=== PATIENT | female | born 1990 | race Caucasian/White ===

== ENCOUNTER 2022-04-10 11:01 | Inpatient (IN) | payer BC ==
[~2022-04-10 11:01] MED LIST: Bupivacaine 0.25% HCL 30 ML VIAL ONE; Bupivacaine HCl 0.5%/Epinephrine 1:200,000/PF 30 ml Vial ONE; Bupivacaine/Epinephrine 0.25% 30 ML VIAL ONE; Lidocaine 2% MPF 10 ML AMP (For Epidural Use) ONE
[2022-04-10] MEDS ORDERED: Diphenoxylate HCl/Atropine Tablet PO PRN ×2 (11:49)
[2022-04-10] MEDS ORDERED: Butorphanol Tartrate 1 MG/ML VIAL SLOW IVP PRN (11:49)
[2022-04-10] MEDS ORDERED: Ibuprofen 800 MG TAB PO PRN (11:49)
[2022-04-10] MEDS ORDERED: HYDROcodone/Acetaminophen 5/325 mg Tablet PO PRN ×2 (11:49)
[2022-04-10] MEDS ORDERED: Lidocaine 1% (PF) 30 ML VIAL SC PRN (11:49)
[2022-04-10] MEDS ORDERED: Acetaminophen 500 MG TAB PO PRN (11:49)
[2022-04-10] MEDS ORDERED: hydrALAZINE 20 MG/ML VIAL SLOW IVP PRN (11:49)
[2022-04-10] MEDS ORDERED: Promethazine HCl 25 MG/ML VIAL IM PRN ×2 (11:49→14:50)
[2022-04-10] MEDS ORDERED: Carboprost 250 MCG/ML AMP IM PRN (11:49)
[2022-04-10] MEDS ORDERED: Ondansetron PF 4 MG/2 ML Vial IVP PRN ×2 (11:49→14:50)
[2022-04-10] MEDS ORDERED: Misoprostol 200 MCG TAB PR PRN (11:49)
[2022-04-10] MEDS ORDERED: NS w/ Oxytocin 30 units 500 ML IV SCH ×2 (12:00)
[2022-04-10] MEDS ORDERED: NS w/ Oxytocin 30 units 500 ML ONE (12:21)
[2022-04-10] MEDS ORDERED: Clindamycin/D5W 900 mg/50 ml Premix Bag ONE (12:21)
[2022-04-10 12:37] LABS: Hemoglobin 12.4 g/dL (12.0-15.5); Mean Corpuscular HGB CONC 33.3 g/dL (32.0-36.0); Mean Corpuscular Hemoglobin 31.2 pg (27.0-33.0); Mean Corpuscular Volume 93.7 fl (81.6-98.3); Mean Platelet Volume 11.1 fl (7.4-10.4); Platelet Count 317 10x3/uL (150-450); RBC Distribution Width 13.9 % (11.5-14.5); Red Blood Cell (RBC) Count 3.97 10x6/uL (3.90-5.03); White Blood Cell (WBC) Count 9.3 10x3/uL (3.5-10.5)
[2022-04-10 13:26] LABS: HBSAg Index 0.23 S/CO (0-0.99); Hep B Surf Ag Non-Reactive S/CO (NonReactive); Syphilis Antibody Nonreactive (Nonreactive); Syphilis Antibody Index 0.03 S/CO (<1.00 Non-Reactive)
[2022-04-10 13:55] LABS: ALT (SGPT) 23 U/L (8-55); AST (SGOT) 23 U/L (5-34); Albumin 3.6 g/dL (3.5-5.0); Alkaline Phosphatase 93 U/L (40-110); Anion Gap 17 mmol/L (10-20); BUN (Urea Nitrogen) 11 mg/dL (7.0-18.7); Bilirubin, Total 0.3 mg/dL (0.2-1.2); Calc. Creatinine Clearance 0 mL/min (70-130); Calcium 9.5 mg/dL (7.8-10.44); Carbon Dioxide 21 mmol/L (22-29); Chloride 105 mmol/L (98-107); Estimated GFR 84; Globulin 2.9 g/dL (2.4-3.5); Glucose 75 mg/dL (70-105); Potassium 4.2 mmol/L (3.5-5.1); Protein, Total 6.5 g/dL (6.0-8.3); Sodium 139 mmol/L (136-145)
[2022-04-10] MEDS ORDERED: Fentanyl 2 mcg/Bup 0.1% Cadd 100 ML ONE ×2 (14:25→19:24)
[2022-04-10] MEDS ORDERED: Lactated Ringer's 500 ML IV PRN (14:50)
[2022-04-10] MEDS ORDERED: diphenhydrAMINE 50 MG/ML VIAL IVP PRN (14:50)
[2022-04-10] MEDS ORDERED: Naloxone HCl 0.4 mg/ml Vial IVP PRN ×2 (14:50)
[2022-04-10] MEDS ORDERED: Moisturizing Cream (Eucerin) 113 GM JAR TOP PRN (14:50)
[2022-04-10] MEDS ORDERED: Acetaminophen 325 MG TAB PO PRN (14:50)
[2022-04-10] MEDS ORDERED: ePHEDrine Sulfate 50 MG/10 ML VIAL SLOW IVP PRN (14:50)
[2022-04-10] MEDS ORDERED: Communication Order-Pharmacy FS SCH (15:00)
[2022-04-10] MEDS ORDERED: Fentanyl 2 mcg/Bupivacaine 0.1% Cassette 100 ML EPIDURAL SCH (15:00)
[2022-04-10 16:20] LABS: SARS-CoV-2 NAA Rapid Test Not Detected (NotDetected)
[2022-04-10] MEDS ORDERED: Lidocaine 2% MPF 10 ML AMP (For Epidural Use) ONE (16:37)
[2022-04-10] MEDS ORDERED: Bupivacaine HCl 0.5%/Epinephrine 1:200,000/PF 30 ml Vial ONE (16:37)
[2022-04-10] MEDS ORDERED: Bupivacaine/Epinephrine 0.25% 30 ML VIAL ONE (16:37)
[2022-04-10] MEDS ORDERED: Bupivacaine 0.25% HCL 30 ML VIAL ONE (16:37)
[2022-04-10] MEDS: Lactated Ringer's 1,000 ML IV SCH ×2 (19:31→21:42)
[2022-04-10] MEDS: Clindamycin/D5W 900 MG in Premix Bag 1 BAG IVPB SCH (21:42)
[2022-04-11] MEDS ORDERED: CEFAZOLIN 2 GM VIAL ONE (00:36)
[2022-04-11] MEDS ORDERED: Azithromycin 500 MG VIAL ONE (00:37)
[2022-04-11] MEDS ORDERED: CEFAZOLIN 1 GM VIAL ONE (00:38)
[2022-04-11] MEDS ORDERED: Oxytocin 10 UNITS/ML VIAL ONE (00:43)
[2022-04-11] MEDS ORDERED: Morphine PF 10 MG/10 ML VIAL ONE (00:44)
[2022-04-11] MEDS ORDERED: HYDROcodone/Acetaminophen 5/325 mg Tablet PO PRN (00:55)
[2022-04-11] MEDS ORDERED: Acetaminophen 325 MG TAB PO PRN (00:55)
[2022-04-11] MEDS ORDERED: Lanolin Ointment 7 GM TUBE TOP PRN (00:55)
[2022-04-11] MEDS ORDERED: diphenhydrAMINE 25 MG CAP PO PRN ×2 (00:55→03:26)
[2022-04-11] MEDS ORDERED: Misoprostol 200 MCG TAB PR PRN (00:55)
[2022-04-11] MEDS ORDERED: Bisacodyl 10 MG SUPP PR PRN (00:55)
[2022-04-11] MEDS ORDERED: Boostrix 0.5 ML (Tdap) VIAL IM ONE (00:55)
[2022-04-11] MEDS ORDERED: hydrALAZINE 20 MG/ML VIAL SLOW IVP PRN (00:55)
[2022-04-11] MEDS ORDERED: Succinylcholine 200 MG/10 ml SYRINGE FS ONE (01:05)
[2022-04-11] MEDS ORDERED: PROPOFOL 20 ML ONE (01:05)
[2022-04-11] MEDS ORDERED: PHENYLEPHRINE-NS 100 MCG/ML 10 ML SYRINGE ONE (01:19)
[2022-04-11] MEDS ORDERED: Fentanyl 100 MCG/2 ML VIAL ONE ×2 (01:29→01:47)
[2022-04-11] MEDS ORDERED: Midazolam HCl 2 mg/2 ml Vial ONE (01:29)
[2022-04-11] MEDS ORDERED: Promethazine HCl 25 MG/ML VIAL IVPB PRN (02:07)
[2022-04-11] MEDS ORDERED: Meperidine HCl/PF 25 MG/ML VIAL SLOW IVP PRN (02:07)
[2022-04-11] MEDS ORDERED: Ondansetron HCl/PF 4 MG/2 ML Vial IVP PRN ×2 (02:07)
[2022-04-11] MEDS ORDERED: Fentanyl 100 MCG/2 ML VIAL SLOW IVP PRN (02:07)
[2022-04-11] MEDS ORDERED: Promethazine HCl 25 MG/ML VIAL IM PRN ×2 (02:07→03:26)
[2022-04-11] MEDS ORDERED: Ketorolac Tromethamine 30 MG/ML VIAL IVP SCH (02:15)
[2022-04-11] MEDS ORDERED: Meperidine HCl/PF 25 MG/ML VIAL ONE (02:39)
[2022-04-11] MEDS ORDERED: Diphenoxylate HCl/Atropine Tablet PO PRN (03:13)
[2022-04-11] MEDS ORDERED: Naloxone HCl 0.4 mg/ml Vial IV PRN (03:26)
[2022-04-11] MEDS ORDERED: diphenhydrAMINE 50 MG/ML VIAL IVP PRN (03:26)
[2022-04-11] MEDS ORDERED: fentaNYL Citrate/PF 2,000 MCG in Sodium Chloride 0.9% 60 ML IV PRN (03:26)
[2022-04-11] MEDS ORDERED: diphenhydrAMINE 50 MG/ML VIAL IM PRN (03:26)
[2022-04-11] MEDS ORDERED: Ondansetron PF 4 MG/2 ML Vial IVP PRN (03:26)
[2022-04-11] MEDS ORDERED: Zolpidem Tartrate 5 MG TAB PO PRN (03:26)
[2022-04-11] MEDS ORDERED: Communication Order-Pharmacy FS SCH (03:30)
[2022-04-11] MEDS ORDERED: fentaNYL Citrate/PF 1,000 MCG in Sodium Chloride 0.9% 30 ML IV PRN (03:45)
[2022-04-11] MEDS: Prenatal Vitamin 1 TAB PO SCH (10:40)
[2022-04-11] MEDS: Ibuprofen 800 MG TAB PO SCH (10:40)
[2022-04-11] MEDS: Clindamycin/D5W 900 MG in Premix Bag 1 BAG IVPB SCH (10:41)
[2022-04-11] MEDS: Lactated Ringer's 1,000 ML IV SCH (10:41)
[2022-04-11 12:22] LABS: Hemoglobin 9.4 g/dL (12.0-15.5); Mean Corpuscular HGB CONC 33.5 g/dL (32.0-36.0); Mean Corpuscular Hemoglobin 31.2 pg (27.0-33.0); Mean Corpuscular Volume 93.4 fl (81.6-98.3); Mean Platelet Volume 10.7 fl (7.4-10.4); Platelet Count 273 10x3/uL (150-450); RBC Distribution Width 14.2 % (11.5-14.5); Red Blood Cell (RBC) Count 3.01 10x6/uL (3.90-5.03); White Blood Cell (WBC) Count 16.2 10x3/uL (3.5-10.5)
[2022-04-11] MEDS: Ketorolac Tromethamine 30 MG/ML VIAL IVP PRN ×2 (12:47→20:36)
[2022-04-12] MEDS: Ketorolac Tromethamine 30 MG/ML VIAL IVP PRN (02:07)
[2022-04-12] MEDS: Lactated Ringer's 1,000 ML IV SCH (02:08)
[2022-04-12 05:28] LABS: Hemoglobin 8.1 g/dL (12.0-15.5); Mean Corpuscular HGB CONC 32.9 g/dL (32.0-36.0); Mean Corpuscular Hemoglobin 31.2 pg (27.0-33.0); Mean Corpuscular Volume 94.6 fl (81.6-98.3); Mean Platelet Volume 10.3 fl (7.4-10.4); Platelet Count 236 10x3/uL (150-450); RBC Distribution Width 14.3 % (11.5-14.5); White Blood Cell (WBC) Count 12.1 10x3/uL (3.5-10.5)
[2022-04-12] MEDS: HYDROcodone/Acetaminophen 5/325 mg Tablet PO PRN ×3 (08:42→18:56)
[2022-04-12] MEDS: Simethicone Chewable 80 MG TAB PO PRN ×3 (08:43→21:46)
[2022-04-12] MEDS: Ibuprofen 800 MG TAB PO SCH ×3 (13:18→21:46)
[2022-04-12] MEDS: Prenatal Vitamin 1 TAB PO SCH (13:20)
[2022-04-12] MEDS: Ferrous Sulfate 325 MG TAB PO SCH (16:19)
[2022-04-13 03:23] VITALS: TEMP 98.4
[2022-04-13] MEDS: Ibuprofen 800 MG TAB PO SCH ×2 (05:05→13:37)
[2022-04-13] MEDS: HYDROcodone/Acetaminophen 5/325 mg Tablet PO PRN ×2 (09:45→13:32)
[2022-04-13] MEDS: Ferrous Sulfate 325 MG TAB PO SCH (09:46)
[2022-04-13] MEDS: Simethicone Chewable 80 MG TAB PO PRN ×2 (09:47→13:33)
[2022-04-13 10:05] LABS: Hemoglobin 8.5 g/dL (12.0-15.5)
[2022-04-13 11:06] VITALS: BP 132/60
[2022-04-13] MEDS: Prenatal Vitamin 1 TAB PO SCH (13:33)
== END 2022-04-13 14:30 | disposition home or self-care (01) | DRG 787 ==
LOC: CSHLD 11:01 → CSHPP 04-11 09:21
PROVIDERS: ADMIT Obstetrics & Gynecology; ATTEND Obstetrics & Gynecology
PROC: 10D00Z1 Extraction of Products of Conception, Low, Open Approach (ICD-10-PCS; principal; 2022-04-11)
PROC: 6A550ZT Pheresis of Cord Blood Stem Cells, Single (ICD-10-PCS; 2022-04-11)
DX: O13.4 Gestational [pregnancy-induced] hypertension without significant proteinuria, complicating childbirth (principal); D62 Acute posthemorrhagic anemia; Z37.0 Single live birth; Z3A.39 39 weeks gestation of pregnancy; O77.0 Labor and delivery complicated by meconium in amniotic fluid; O32.8XX0 Maternal care for other malpresentation of fetus, not applicable or unspecified; O90.81 Anemia of the puerperium; Z20.822 Contact with and (suspected) exposure to COVID-19; O60.23X0 Term delivery with preterm labor, third trimester, not applicable or unspecified; D50.9 Iron deficiency anemia, unspecified; O62.1 Secondary uterine inertia; O32.4XX0 Maternal care for high head at term, not applicable or unspecified; Z88.0 Allergy status to penicillin; Z88.2 Allergy status to sulfonamides; Z82.61 Family history of arthritis; O72.1 Other immediate postpartum hemorrhage
CPT/HCPCS: 36415; 36416; 51702; 80053; 85014; 85018; 85027; 86780; 86850; 86900; 86901; 87340; J0456; J0690; J1885; J2175; J2250; J2274; J2590; J2704; J3010; J3490; J7120; S0020; U0002